=== PATIENT | male | born 1945 | race African-American/Black ===

== ENCOUNTER 2022-04-10 06:29 | Inpatient (IN) | payer OTHER ==
[~2022-04-10] VITALS: Ht 167.6 cm; Wt 57.2 kg
[2022-04-10 07:44] LABS: ALANINE AMINOTRANSFERASE 24 U/L (12-78); ALBUMIN 2.2 g/dL (3.4-5.0); ALKALINE PHOSPHATASE 121 U/L (46-116); ASPARTATE AMINOTRANSFERASE 26 U/L (15-37); BILIRUBIN,DIRECT 0.2 mg/dL (0.0-0.2); BILIRUBIN,TOTAL 0.4 mg/dL (0.2-1.0); CALCIUM, SERUM 8.9 mg/dL (8.5-10.1); CARBON DIOXIDE 27 mmol/L (21-32); CHLORIDE 95 mmol/L (98-107); CREATININE 7.3 mg/dL (0.6-1.3); GLUCOSE 147 mg/dL (74-106); POTASSIUM 3.9 mmol/L (3.5-5.1); SODIUM SERUM 131 mmol/L (136-145); TOTAL PROTEIN, SERUM 8.4 g/dL (6.4-8.2); UREA NITROGEN, BLOOD 56 mg/dL (7-18)
[2022-04-10 07:46] LABS: COLOR,URINE AMBER (YELLOW)
[2022-04-10 07:48] LABS: PROTEIN,URINE 3+ mg/dl (NEGATIVE); UGLUCOSE NEGATIVE (NEGATIVE)
[2022-04-10 07:49] LABS: BILIRUBIN,URINE SMALL (NEGATIVE); LEUKOCYTE ESTERASE ,URINE LARGE (NEGATIVE); NITRITE, URINE NEGATIVE (NEGATIVE)
[2022-04-10 07:50] LABS: BACTERIA,URINE Many /HPF (None Seen); SQUAMOUS EPITHELIAL CELL,UR Few /HPF (None Seen); WBC,URINE TOO NUMEROUS TO COUN /HPF (0-3)
[2022-04-10 08:08] LABS: SERUM AMMONIA 29 umol/L (11-32)
[2022-04-10 08:33] LABS: BASOPHILS % (AUTO) 0.1 % (0.0-2.0); HEMATOCRIT 37 % (39-51); HEMOGLOBIN 11.5 g/dL (13.5-17.5); LYMPHOCYTES # (AUTO) 1.1 K/uL (0.8-4.8); LYMPHOCYTES % (AUTO) 6.5 % (20.0-44.0); MEAN CORPUSCULAR HGB CONC 31 g/dl (31.0-36.0); MEAN CORPUSCULAR VOLUME 88 fL (80-96); MONOCYTES # (AUTO) 1.5 K/uL (0.1-1.30); MONOCYTES % (AUTO) 8.8 % (2.0-12.0); NEUTROPHILS # (AUTO) 14.5 K/uL (1.8-8.9); NEUTROPHILS % (AUTO) 84.6 % (43.0-81.0); PLATELET COUNT (AUTO) 271 K/uL (150-450); WHITE BLOOD COUNT (AUTO) 17.2 K/uL (4.3-11.0)
[2022-04-10] MEDS: CIPROFLOXACIN IV RTU 400 MG in PREMIX 1 EA IV SCH ×2 (08:48→20:39)
[2022-04-10 08:55] LABS: THYROID STIMULATING HORMONE 1.219 uIU/mL (0.358-3.74)
[2022-04-10] MEDS ORDERED: AMIN30LI2 PO (09:01)
[2022-04-10] MEDS ORDERED: ATOR10TA GT (09:01)
[2022-04-10] MEDS ORDERED: VIT1TABL46 PO (09:01)
[2022-04-10] MEDS ORDERED: APIX2.5T PO (09:01)
[2022-04-10] MEDS ORDERED: MELA3TAB41 PO (09:01)
[2022-04-10] MEDS ORDERED: MIDO10TA PO (09:01)
[2022-04-10] MEDS ORDERED: FAMO20TA8 PO (09:01)
[2022-04-10] MEDS ORDERED: CINA30TA2 PO (09:01)
[2022-04-10] MEDS ORDERED: CHOL200013 PO (09:01)
[2022-04-10] MEDS ORDERED: SEVE800T8 PO (09:01)
[2022-04-10] MEDS ORDERED: DOCU-141 PO (09:01)
[2022-04-10] MEDS ORDERED: Z GUARD REMEDY 4 OZ OINT TP PRN (11:30)
[2022-04-10] MEDS ORDERED: ACETAMINOPHEN 325 MG TABLET PO PRN (11:30)
[2022-04-10] MEDS ORDERED: ONDANSETRON HCL/PF 4 MG/2 ML VIAL IVP PRN (11:30)
[2022-04-10] MEDS: SEVELAMER CARBONATE 800 MG TABLET PO SCH ×2 (13:00→18:31)
[2022-04-10] MEDS ORDERED: CEFTRIAXONE 1 G VIAL ONE ×2 (13:16)
[2022-04-10] MEDS: CEFTRIAXONE 1 G in IV D5W 50 ML IV SCH (13:32)
[2022-04-10] MEDS: DOCUSATE SODIUM 100 MG CAPSULE PO SCH (17:00)
[2022-04-10 20:24] VITALS: BP 130/77
[2022-04-10] MEDS ORDERED: HEPARIN SODIUM, PORCINE 5000 UNITS/1 ML VIAL SQ ONE (21:00)
[2022-04-10] MEDS: ATORVASTATIN 10 MG TABLET GT SCH (21:27)
[2022-04-10] MEDS: APIXABAN 2.5 MG TABLET PO SCH (21:29)
[2022-04-11 00:38] VITALS: BP 118/42
[2022-04-11 04:20] VITALS: BP_SYST 105; BP_SYST 109; BP_DIAS 64; BP_DIAS 80
[2022-04-11 06:10] LABS: BASOPHILS % (AUTO) 0.1 % (0.0-2.0); HEMATOCRIT 37 % (39-51); HEMOGLOBIN 11.4 g/dL (13.5-17.5); LYMPHOCYTES # (AUTO) 0.8 K/uL (0.8-4.8); LYMPHOCYTES % (AUTO) 5.2 % (20.0-44.0); MEAN CORPUSCULAR HGB CONC 31 g/dl (31.0-36.0); MEAN CORPUSCULAR VOLUME 88 fL (80-96); MONOCYTES % (AUTO) 6.8 % (2.0-12.0); NEUTROPHILS # (AUTO) 13.4 K/uL (1.8-8.9); NEUTROPHILS % (AUTO) 87.9 % (43.0-81.0); PLATELET COUNT (AUTO) 233 K/uL (150-450); RED BLOOD CELL COUNT(AUTO) 4.18 MIL/uL (4.5-6.0); WHITE BLOOD COUNT (AUTO) 15.2 K/uL (4.3-11.0)
[2022-04-11 06:35] LABS: CARBON DIOXIDE 23 mmol/L (21-32); CHLORIDE 95 mmol/L (98-107); GLUCOSE 167 mg/dL (74-106); MAGNESIUM 2.3 mg/dL (1.8-2.4); PHOSPHORUS 6.7 mg/dL (2.5-4.9); POTASSIUM 3.8 mmol/L (3.5-5.1); SODIUM SERUM 133 mmol/L (136-145); UREA NITROGEN, BLOOD 69 mg/dL (7-18)
[2022-04-11 07:30] LABS: CREATININE 7.7 mg/dL (0.6-1.3)
[2022-04-11] MEDS: CIPROFLOXACIN IV RTU 400 MG in PREMIX 1 EA IV SCH ×2 (08:22→20:41)
[2022-04-11 08:38] VITALS: BP 122/73
[2022-04-11] MEDS: FAMOTIDINE (20 MG) 20 MG TABLET PO SCH (09:49)
[2022-04-11] MEDS: VIT B CMPLX 3/FA/VIT C/BIOTIN 1 TAB TABLET PO SCH (09:49)
[2022-04-11] MEDS: SEVELAMER CARBONATE 800 MG TABLET PO SCH ×3 (09:49→17:15)
[2022-04-11] MEDS: CHOLECALCIFEROL 1,000 UNIT TABLET (VIT D3) PO SCH (09:49)
[2022-04-11] MEDS: DOCUSATE SODIUM 100 MG CAPSULE PO SCH ×2 (09:49→17:15)
[2022-04-11] MEDS: CINACALCET HCL 30 MG TABLET PO SCH (09:49)
[2022-04-11] MEDS: APIXABAN 2.5 MG TABLET PO SCH ×2 (09:50→21:16)
[2022-04-11 12:09] VITALS: BP 128/96
[2022-04-11] MEDS: CEFTRIAXONE 1 G in IV D5W 50 ML IV SCH (12:35)
[2022-04-11] MEDS: IV NS 0.9% 1,000 ML IV PRN (13:17)
[2022-04-11 16:21] VITALS: BP 103/76
[2022-04-11] MEDS: PROSOURCE / PROSTAT (PYXIS) 30 ML UDC GT SCH (17:15)
[2022-04-11 20:00] VITALS: BP 106/84
[2022-04-11] MEDS: ATORVASTATIN 10 MG TABLET GT SCH (21:13)
[2022-04-12] VITALS: BP 113/68
[2022-04-12] MEDS: IV NS 0.9% 1,000 ML IV PRN ×2 (03:30→23:47)
[2022-04-12 04:00] VITALS: BP 102/79
[2022-04-12 06:13] LABS: HEMATOCRIT 36 % (39-51); HEMOGLOBIN 11.5 g/dL (13.5-17.5); LYMPHOCYTES # (AUTO) 0.5 K/uL (0.8-4.8); LYMPHOCYTES % (AUTO) 4.6 % (20.0-44.0); MEAN CORPUSCULAR HGB CONC 32 g/dl (31.0-36.0); MEAN CORPUSCULAR VOLUME 87 fL (80-96); MONOCYTES # (AUTO) 0.9 K/uL (0.1-1.30); MONOCYTES % (AUTO) 8.9 % (2.0-12.0); NEUTROPHILS # (AUTO) 8.8 K/uL (1.8-8.9); NEUTROPHILS % (AUTO) 86.5 % (43.0-81.0); PLATELET COUNT (AUTO) 168 K/uL (150-450); RED BLOOD CELL COUNT(AUTO) 4.14 MIL/uL (4.5-6.0); WHITE BLOOD COUNT (AUTO) 10.1 K/uL (4.3-11.0)
[2022-04-12 06:46] LABS: ALANINE AMINOTRANSFERASE 24 U/L (12-78); ALBUMIN 1.9 g/dL (3.4-5.0); ALKALINE PHOSPHATASE 92 U/L (46-116); ASPARTATE AMINOTRANSFERASE 20 U/L (15-37); BILIRUBIN,TOTAL 0.5 mg/dL (0.2-1.0); CARBON DIOXIDE 23 mmol/L (21-32); CHLORIDE 96 mmol/L (98-107); GLUCOSE 106 mg/dL (74-106); MAGNESIUM 2.1 mg/dL (1.8-2.4); POTASSIUM 3.7 mmol/L (3.5-5.1); SODIUM SERUM 132 mmol/L (136-145); TOTAL PROTEIN, SERUM 7.8 g/dL (6.4-8.2); UREA NITROGEN, BLOOD 37 mg/dL (7-18)
[2022-04-12 08:00] VITALS: BP 99/65
[2022-04-12] MEDS: FAMOTIDINE (20 MG) 20 MG TABLET PO SCH (08:13)
[2022-04-12] MEDS: APIXABAN 2.5 MG TABLET PO SCH ×2 (08:14→20:18)
[2022-04-12] MEDS: CHOLECALCIFEROL 1,000 UNIT TABLET (VIT D3) PO SCH (08:14)
[2022-04-12] MEDS: DOCUSATE SODIUM 100 MG CAPSULE PO SCH ×2 (08:15→17:34)
[2022-04-12] MEDS: VIT B CMPLX 3/FA/VIT C/BIOTIN 1 TAB TABLET PO SCH (08:15)
[2022-04-12] MEDS: SEVELAMER CARBONATE 800 MG TABLET PO SCH ×3 (08:15→17:34)
[2022-04-12] MEDS: CINACALCET HCL 30 MG TABLET PO SCH (08:20)
[2022-04-12] MEDS: CIPROFLOXACIN IV RTU 400 MG in PREMIX 1 EA IV SCH (08:20)
[2022-04-12] MEDS: PROSOURCE / PROSTAT (PYXIS) 30 ML UDC GT SCH ×3 (08:29→17:34)
[2022-04-12] MEDS: CEFTRIAXONE 1 G in IV D5W 50 ML IV SCH (13:28)
[2022-04-12] MEDS ORDERED: ALBUMIN 25% 25 GM in PREMIX 1 EA IV PRN (15:30)
[2022-04-12 15:47] VITALS: BP 101/68
[2022-04-12] MEDS: NEPRO VAN 237 ML CAN PO PRN (17:53)
[2022-04-12 20:00] VITALS: BP 100/57
[2022-04-12] MEDS: ATORVASTATIN 10 MG TABLET GT SCH (21:16)
[2022-04-13] MEDS: SEVELAMER CARBONATE 800 MG TABLET PO SCH ×3 (07:41→17:10)
[2022-04-13 08:00] VITALS: BP 98/55
[2022-04-13] MEDS: DOCUSATE SODIUM 100 MG CAPSULE PO SCH ×2 (08:19→17:10)
[2022-04-13] MEDS: VIT B CMPLX 3/FA/VIT C/BIOTIN 1 TAB TABLET PO SCH (08:19)
[2022-04-13] MEDS: CHOLECALCIFEROL 1,000 UNIT TABLET (VIT D3) PO SCH (08:19)
[2022-04-13] MEDS: FAMOTIDINE (20 MG) 20 MG TABLET PO SCH (08:19)
[2022-04-13] MEDS: CINACALCET HCL 30 MG TABLET PO SCH (08:19)
[2022-04-13] MEDS: PROSOURCE / PROSTAT (PYXIS) 30 ML UDC GT SCH ×2 (08:21→17:10)
[2022-04-13] MEDS: APIXABAN 2.5 MG TABLET PO SCH ×2 (08:21→21:25)
[2022-04-13] MEDS: NEPRO VAN 237 ML CAN PO PRN (08:41)
[2022-04-13] MEDS: IV NS 0.9% 1,000 ML IV PRN (13:00)
[2022-04-13] MEDS: CEFTRIAXONE 1 G in IV D5W 50 ML IV SCH (13:01)
[2022-04-13 16:00] VITALS: BP 101/46
[2022-04-13 20:00] VITALS: BP 109/49
[2022-04-13] MEDS: ATORVASTATIN 10 MG TABLET GT SCH (21:25)
[2022-04-14] MEDS: IV NS 0.9% 1,000 ML IV PRN ×2 (00:29→05:12)
[2022-04-14 04:00] VITALS: BP 128/71
[2022-04-14] MEDS: CHOLECALCIFEROL 1,000 UNIT TABLET (VIT D3) PO SCH (08:13)
[2022-04-14] MEDS: VIT B CMPLX 3/FA/VIT C/BIOTIN 1 TAB TABLET PO SCH (08:13)
[2022-04-14] MEDS: SEVELAMER CARBONATE 800 MG TABLET PO SCH ×2 (08:13→12:12)
[2022-04-14] MEDS: DOCUSATE SODIUM 100 MG CAPSULE PO SCH ×2 (08:13→16:36)
[2022-04-14] MEDS: FAMOTIDINE (20 MG) 20 MG TABLET PO SCH (08:13)
[2022-04-14] MEDS: APIXABAN 2.5 MG TABLET PO SCH (08:14)
[2022-04-14] MEDS: CINACALCET HCL 30 MG TABLET PO SCH (08:15)
[2022-04-14] MEDS: PROSOURCE / PROSTAT (PYXIS) 30 ML UDC GT SCH ×2 (08:15→16:36)
[2022-04-14 09:37] VITALS: BP 128/71
[2022-04-14] MEDS: CEFTRIAXONE 1 G in IV D5W 50 ML IV SCH (13:30)
[2022-04-14 15:40] LABS: BASOPHILS % (AUTO) 0.1 % (0.0-2.0); EOSINOPHILS % (AUTO) 0.5 % (0.0-6.0); HEMATOCRIT 37 % (39-51); HEMOGLOBIN 11.5 g/dL (13.5-17.5); LYMPHOCYTES % (AUTO) 12.9 % (20.0-44.0); MEAN CORPUSCULAR HGB CONC 31 g/dl (31.0-36.0); MEAN CORPUSCULAR VOLUME 89 fL (80-96); MONOCYTES # (AUTO) 0.7 K/uL (0.1-1.30); MONOCYTES % (AUTO) 9.3 % (2.0-12.0); NEUTROPHILS # (AUTO) 5.8 K/uL (1.8-8.9); NEUTROPHILS % (AUTO) 77.2 % (43.0-81.0); PLATELET COUNT (AUTO) 163 K/uL (150-450); RED BLOOD CELL COUNT(AUTO) 4.19 MIL/uL (4.5-6.0); WHITE BLOOD COUNT (AUTO) 7.5 K/uL (4.3-11.0)
[2022-04-14 16:00] VITALS: BP 128/71
[2022-04-14 17:30] LABS: CALCIUM, SERUM 8.3 mg/dL (8.5-10.1); CARBON DIOXIDE 27 mmol/L (21-32); CHLORIDE 103 mmol/L (98-107); CREATININE 2.2 mg/dL (0.6-1.3); GLUCOSE 124 mg/dL (74-106); MAGNESIUM 1.9 mg/dL (1.8-2.4); PHOSPHORUS 1.7 mg/dL (2.5-4.9); POTASSIUM 3.7 mmol/L (3.5-5.1); SODIUM SERUM 138 mmol/L (136-145); UREA NITROGEN, BLOOD 14 mg/dL (7-18)
== END 2022-04-14 18:00 | DRG 689 ==
LOC: ER 06:32 → TRANSITION 11:55 → TELE 15:48 → MED 04-13 00:04
PROC: 5A1D70Z Performance of Urinary Filtration, Intermittent, Less than 6 Hours Per Day (ICD-10-PCS; principal; 2022-04-11)
DX: N39.0 Urinary tract infection, site not specified (principal); G93.41 Metabolic encephalopathy; N18.6 End stage renal disease; E87.1 Hypo-osmolality and hyponatremia; E44.0 Moderate protein-calorie malnutrition; I12.0 Hypertensive chronic kidney disease with stage 5 chronic kidney disease or end stage renal disease; G81.90 Hemiplegia, unspecified affecting unspecified side; Z20.822 Contact with and (suspected) exposure to COVID-19; E21.3 Hyperparathyroidism, unspecified; Z88.0 Allergy status to penicillin; Z79.01 Long term (current) use of anticoagulants; Z79.899 Other long term (current) drug therapy; Z86.73 Personal history of transient ischemic attack (TIA), and cerebral infarction without residual deficits; Z99.2 Dependence on renal dialysis; D63.8 Anemia in other chronic diseases classified elsewhere; M89.8X9 Other specified disorders of bone, unspecified site; E78.5 Hyperlipidemia, unspecified; G93.89 Other specified disorders of brain; L60.3 Nail dystrophy; I73.9 Peripheral vascular disease, unspecified; M62.50 Muscle wasting and atrophy, not elsewhere classified, unspecified site; L81.9 Disorder of pigmentation, unspecified
CPT/HCPCS: 36415; 70450-TC; 71045-TC; 80048-TC; 80053-TC; 80076-TC; 81001; 82140-TC; 83735-TC; 84100-TC; 84439-TC; 84443-TC; 85025-TC; 86706; 87081-TC; 87086-TC; 87186-TC; 87340; 90935-TC; 92526; 92611-TC; A4216; A4349; C9803; G0378; J0696; J0744; J7030; J7060; P9047

== ENCOUNTER 2022-07-08 09:42 | Inpatient (IN) | payer MEDICARE, OTHER ==
[~2022-07-08] VITALS: Ht 167.6 cm; Wt 56.7 kg
[~2022-07-08 09:42] MED LIST: AMIN30LI2 PO; APIX2.5T PO; ATOR10TA PO; CHOL200013 PO; CINA30TA2 PO; DOCU-141 PO; FAMO20TA8 PO; MELA3TAB41 PO; MIDO10TA PO; SEVE800T8 PO; VIT1TABL46 PO
--- NOTE | 2022-07-08 09:57 | NUR ---
PT COMING FROM [facility] [phone]
--- NOTE | 2022-07-08 10:05 | NUR ---
CALLED [facility], NO ANSWER. WILL ATTEMPT AGAIN.
--- NOTE | 2022-07-08 10:15 | NUR ---
SPOKE TO MANOJ JETT FROM [facility].
[2022-07-08] MEDS ORDERED: IV NS 0.9% 500 ML BAG IV ONE (10:30)
[2022-07-08 10:42] LABS: BASOPHILS % (AUTO) 0.3 % (0.0-2.0); EOSINOPHILS % (AUTO) 1.5 % (0.0-6.0); HEMATOCRIT 33 % (39-51); HEMOGLOBIN 10.7 g/dL (13.5-17.5); LYMPHOCYTES # (AUTO) 0.8 K/uL (0.8-4.8); LYMPHOCYTES % (AUTO) 9.1 % (20.0-44.0); MEAN CORPUSCULAR HGB CONC 32 g/dl (31.0-36.0); MEAN CORPUSCULAR VOLUME 91 fL (80-96); MONOCYTES # (AUTO) 0.1 K/uL (0.1-1.30); MONOCYTES % (AUTO) 1.6 % (2.0-12.0); NEUTROPHILS # (AUTO) 7.6 K/uL (1.8-8.9); NEUTROPHILS % (AUTO) 87.5 % (43.0-81.0); PLATELET COUNT (AUTO) 272 K/uL (150-450); RED BLOOD CELL COUNT(AUTO) 3.66 MIL/uL (4.5-6.0); WHITE BLOOD COUNT (AUTO) 8.6 K/uL (4.3-11.0)
--- NOTE | 2022-07-08 11:00 | NUR ---
MOVE SHEET SUBMITTED
[2022-07-08] MEDS ORDERED: ACET-868 PO (11:09)
[2022-07-08] MEDS ORDERED: NUT.237L67 PO (11:09)
[2022-07-08] MEDS ORDERED: POVI3780 TP (11:09)
[2022-07-08 11:12] LABS: ALANINE AMINOTRANSFERASE 42 U/L (12-78); ALBUMIN 2.2 g/dL (3.4-5.0); ALKALINE PHOSPHATASE 94 U/L (46-116); ASPARTATE AMINOTRANSFERASE 33 U/L (15-37); BILIRUBIN,DIRECT 0.1 mg/dL (0.0-0.2); BILIRUBIN,TOTAL 0.4 mg/dL (0.2-1.0); CALCIUM, SERUM 8.7 mg/dL (8.5-10.1); CARBON DIOXIDE 29 mmol/L (21-32); CHLORIDE 100 mmol/L (98-107); CREATININE 3.3 mg/dL (0.6-1.3); GLUCOSE 95 mg/dL (74-106); POTASSIUM 3.3 mmol/L (3.5-5.1); SODIUM SERUM 133 mmol/L (136-145); TOTAL PROTEIN, SERUM 7.7 g/dL (6.4-8.2); UREA NITROGEN, BLOOD 36 mg/dL (7-18)
[2022-07-08 11:21] LABS: THYROID STIMULATING HORMONE 1.686 uIU/mL (0.358-3.74)
--- NOTE | 2022-07-08 11:57 | NUR ---
RAPID COVID SWAB DONE AND SENT TO LAB
[2022-07-08] MEDS ORDERED: AZTREONAM 1 G in IV NS 0.9% 100 ML IV ONE (12:00)
[2022-07-08] MEDS ORDERED: VANCOMYCIN 1 GM in IV D5W 250 ML IV ONE (12:00)
--- NOTE | 2022-07-08 12:11 | NUR ---
[facility] PAGED
[2022-07-08] MEDS ORDERED: Medication Not On Formulary EA (Midodrine Hcl 10 MG) PO SCH (12:30)
[2022-07-08] MEDS ORDERED: ACETAMINOPHEN 325 MG TABLET PO PRN (12:30)
[2022-07-08] MEDS ORDERED: ALBUTEROL FS 2.5 MG/0.5 ML VIAL.NEB NEB PRN (12:30)
[2022-07-08] MEDS ORDERED: ONDANSETRON HCL/PF 4 MG/2 ML VIAL IVP PRN (12:30)
[2022-07-08] MEDS ORDERED: MORPHINE SULFATE INJ 2 MG/ML DISP.SYRIN IV PRN (12:30)
--- NOTE | 2022-07-08 12:36 | NUR ---
covid swab taken
[2022-07-08] MEDS ORDERED: Medication Not On Formulary EA (Amino Acids/Protein Hydrolys (Pro-Stat Liquid) 30 ML) PO SCH (13:00)
[2022-07-08] MEDS ORDERED: MIDODRINE HCL (5MG) 5 MG TABLET PO PRN (13:00)
[2022-07-08] MEDS ORDERED: CEFEPIME 1 GM in IV D5W 50 ML IV SCH (14:00)
--- NOTE | 2022-07-08 16:41 | NUR ---
BED 323-1
--- NOTE | 2022-07-08 16:46 | NUR ---
REPORT GIVEN TO RADHA JETT OF TELE UNIT
[2022-07-08] MEDS: NEPRO VAN 237 ML CAN PO SCH (17:00)
[2022-07-08] MEDS: PROSOURCE / PROSTAT (PYXIS) 30 ML UDC PO SCH (17:00)
--- NOTE | 2022-07-08 17:50 | NUR ---
WRIST HEMMER NOTE PT TRANSFERRED FROM ED FOR VIA NINO, WITH NO SIGN OF DISTRESS. ORIENTED PATIENT TO ROOM SET UP AND EDUCATED PATIENT ON HOW TO USE OF CALL LIGHT. 76 Y/O MALE CAME FROM [facility]. IS ON TTS DIALYSIS. DURING DIALYSIS PATIENT EXPERIENCED LOW BP. HE BEING ADMITTED FOR LOW BP. HE IS ALLERGIC TO PENICILLIN. COVID NEGATIVE. PATIENT HAS HAD FLU AND COVID VACCINES. A/OX2. HD PORT ON LEFT CHEST. SKIN ASSESSMENT DONE, DRYNESS NOTE ON RLE AND LUE AND PICTURES TAKEN AND PLACED IN CHART. PATIENT BREATHING ON RA WITH NO S/S OF RESPIRATORY DISTRESS. PATIENT DOES NOT COMPLAINT OF PAIN AT THE MOMENT. EXTERNAL DECAY CONTROL OPERATOR APPLIED TO HIM READING SB @56 BPM. IV ACCESS RIGHT UA ML, PATENT AND INTACT. CHEST CLEAR ON AUSCULTATION. VS TAKEN, STABLE AND RECORDED. ALL BELONGINGS CHECKED. WILL CONTINUE TO MONITOR.
[2022-07-08] MEDS: DOCUSATE SODIUM 100 MG CAPSULE PO SCH (17:57)
[2022-07-08] MEDS ORDERED: IPRATROPIUM/ALBUTEROL INHALER IH SCH (18:00)
[2022-07-08] MEDS ORDERED: Medication Not On Formulary EA (Melatonin 3 MG) PO SCH (18:00)
[2022-07-08] MEDS: APIXABAN 2.5 MG TABLET PO SCH (18:04)
--- NOTE | 2022-07-08 19:10 | NUR ---
RN CLOSING NOTE PATIENT REMAIN STABLE. WILL ENDORSE TO NIPPLE THREADER NURSE FOR ZOE.
[2022-07-08] MEDS: IPRATROPIUM NEB FS 0.5 MG/2.5 ML AMPUL.NEB NEB SCH (19:30)
[2022-07-08] MEDS: ALBUTEROL FS 2.5 MG/0.5 ML VIAL.NEB NEB SCH (19:30)
[2022-07-08 20:00] VITALS: BP 101/63
[2022-07-08] MEDS ORDERED: CEFEPIME 2 GM in IV D5W 100 ML IV SCH (20:00)
[2022-07-08] MEDS: CEFEPIME 1 GM in IV D5W 50 ML IV SCH (20:23)
--- NOTE | 2022-07-08 20:50 | NUR ---
noc rn opening received patient in bed. a/ox1-2 to name and . no s/s of apparent distress on room air. denies pain at this time. reading sb in the tele monitor 57 bpm. rt. UA midline in place. Manually checked patients BP and I got 100/60. Call light within reach. safety in place. will cont. with plan of care for patient.
[2022-07-08] MEDS: ATORVASTATIN 10 MG TABLET PO SCH (23:16)
[2022-07-09] VITALS: BP 108/48
[2022-07-09 04:00] VITALS: BP 123/58
[2022-07-09 05:57] LABS: BASOPHILS % (AUTO) 0.7 % (0.0-2.0); EOSINOPHILS % (AUTO) 2.3 % (0.0-6.0); HEMATOCRIT 33 % (39-51); HEMOGLOBIN 10.7 g/dL (13.5-17.5); LYMPHOCYTES # (AUTO) 1.5 K/uL (0.8-4.8); LYMPHOCYTES % (AUTO) 25.8 % (20.0-44.0); MEAN CORPUSCULAR HGB CONC 33 g/dl (31.0-36.0); MEAN CORPUSCULAR VOLUME 90 fL (80-96); MONOCYTES # (AUTO) 0.8 K/uL (0.1-1.30); MONOCYTES % (AUTO) 14.1 % (2.0-12.0); NEUTROPHILS # (AUTO) 3.3 K/uL (1.8-8.9); NEUTROPHILS % (AUTO) 57.1 % (43.0-81.0); PLATELET COUNT (AUTO) 297 K/uL (150-450); RED BLOOD CELL COUNT(AUTO) 3.65 MIL/uL (4.5-6.0); WHITE BLOOD COUNT (AUTO) 5.8 K/uL (4.3-11.0)
--- NOTE | 2022-07-09 06:30 | NUR ---
noc rn note just got off the phone with patient's daughter Estelle Singh, verified code status. per Daughter she wants her father to be Full code and she is not sure about patient having legal documents. secured consent for hemodialysis in patient via telephone, witnessed by another RN. questions and concerns answered at this time.
--- NOTE | 2022-07-09 07:20 | NUR ---
SUPERVISOR ELECTROLYTIC TINNING OPENING NOTES RECEIVED PATIENT ASLEEP BUT WOKEN UP EASILY. PATIENT IS A/O X 3. BREATHING EVEN AND NON-LABORED ON ROOM AIR. NOT IN APPARENT DISTRESS. NO PAIN OR DISCOMFORT NOTED. ON TELE MONITOR READING SINUS ANDREA AT 59 BPM. HAS RIGHT UPPER ARM MIDLINE AND SALINE LOCKED. NO S/S OF INFILTRATION NOTED. HAS LEFT CHEST WALL PERMA CATH, DRESSING C/D/I. SAFETY PRECAUTIONS IN PLACE: BED LOCKED AND IN LOWEST POSITION, SIDE RAILS UP X2, CALL LIGHT WITHIN REACH. WILL CONTINUE POC.
[2022-07-09] MEDS: IPRATROPIUM NEB FS 0.5 MG/2.5 ML AMPUL.NEB NEB SCH ×3 (07:35→20:34)
[2022-07-09] MEDS: ALBUTEROL FS 2.5 MG/0.5 ML VIAL.NEB NEB SCH ×3 (07:35→20:34)
--- NOTE | 2022-07-09 07:37 | NUR ---
noc rn closing needs attended. report given to JOHNIE Hodge for continuity of patient care.
[2022-07-09 08:00] VITALS: BP 132/73
[2022-07-09] MEDS: NEPRO VAN 237 ML CAN PO SCH ×2 (08:00→17:00)
--- NOTE | 2022-07-09 08:22 | NUR ---
WOUND CARE CONSULT: PT PRESENTS WITH INCONTINENCE AND LEFT LEG CONTRACTURE, AREAS OF SKIN DISCOLORATION, DRY SCALY SKIN TO LOWER LEGS AND SACRAL SCAR, ALL PRESENT ON ADMISSION. RECOMMENDATIONS MADE FOR SKIN PROTECTION. DISCUSSED WITH NURSING STAFF. FIRST STEP LOW AIRLOSS MATTRESS ORDERED. MD IN AGREEMENT WITH PLAN OF CARE. Addendum: 07/09/22 at 0824 by ALANA BEARDEN WNDNU Amended: Links added.
[2022-07-09] MEDS ORDERED: Z GUARD REMEDY 4 OZ OINT TP PRN (08:30)
[2022-07-09] MEDS: VIT B CMPLX 3/FA/VIT C/BIOTIN 1 TAB TABLET PO SCH (10:07)
[2022-07-09] MEDS: DOCUSATE SODIUM 100 MG CAPSULE PO SCH ×2 (10:08→17:48)
[2022-07-09] MEDS: FAMOTIDINE (20 MG) 20 MG TABLET PO SCH (10:08)
[2022-07-09] MEDS: APIXABAN 2.5 MG TABLET PO SCH ×2 (10:11→17:51)
[2022-07-09] MEDS: PROSOURCE / PROSTAT (PYXIS) 30 ML UDC PO SCH ×3 (10:29→17:48)
[2022-07-09] MEDS: Z GUARD REMEDY 4 OZ OINT TP SCH (11:26)
[2022-07-09] MEDS: MINERAL OIL/PETROLATUM,WHITE 120 GM JAR TP SCH (11:27)
[2022-07-09 11:52] LABS: ALANINE AMINOTRANSFERASE 31 U/L (12-78); ALBUMIN 2.3 g/dL (3.4-5.0); ALKALINE PHOSPHATASE 86 U/L (46-116); ASPARTATE AMINOTRANSFERASE 25 U/L (15-37); BILIRUBIN,TOTAL 0.2 mg/dL (0.2-1.0); CALCIUM, SERUM 8.8 mg/dL (8.5-10.1); CARBON DIOXIDE 27 mmol/L (21-32); CHLORIDE 102 mmol/L (98-107); CREATININE 4.6 mg/dL (0.6-1.3); GLUCOSE 122 mg/dL (74-106); PHOSPHORUS 3.8 mg/dL (2.5-4.9); POTASSIUM 3.6 mmol/L (3.5-5.1); SODIUM SERUM 135 mmol/L (136-145); UREA NITROGEN, BLOOD 53 mg/dL (7-18)
[2022-07-09 16:00] VITALS: BP 136/83
--- NOTE | 2022-07-09 19:00 | NUR ---
POWER ELECTRONICS ENGINEER CLOSING NOTES PATIENT ASLEEP BUT WOKEN UP EASILY. PATIENT IS A/O X 3. BREATHING EVEN AND NON-LABORED ON ROOM AIR. NOT IN APPARENT DISTRESS. NO PAIN OR DISCOMFORT NOTED. ON TELE MONITOR READING SINUS ANDREA AT 59 BPM. HAS RIGHT UPPER ARM MIDLINE AND SALINE LOCKED. NO S/S OF INFILTRATION NOTED. HAS LEFT CHEST WALL PERMA CATH, DRESSING C/D/I. SAFETY PRECAUTIONS IN PLACE: BED LOCKED AND IN LOWEST POSITION, SIDE RAILS UP X2, CALL LIGHT WITHIN REACH. ENDORSED TO NEXT SHIFT FOR CONTINUITY OF CARE.
--- NOTE | 2022-07-09 19:30 | NUR ---
BAND SAWMILL OPERATOR OPENING NOTES RECEIVED PATIENT LAYING IN BED, WHOLE BODY COVERED WITH BLANKET. RESPONSIVE TO VERBAL AND TACTILE STIMULI. A/O X 2-3. BREATHING EVEN AND NON-LABORED ON ROOM AIR. NOT IN APPARENT DISTRESS. NO PAIN OR DISCOMFORT NOTED. ON TELE MONITOR READING SINUS RHYTHM WITH PVC AT 64 BPM. HAS RIGHT UPPER ARM MIDLINE AND SALINE LOCKED. NO S/S OF INFILTRATION NOTED. HAS LEFT CHEST WALL PERMA CATH, DRESSING C/D/I. HAS CONDOM CATHETER CONNECTED TO BAG FOR COLLECTION OF URINE SAMPLE. SAFETY PRECAUTIONS IN PLACE: BED LOCKED AND IN LOWEST POSITION, SIDE RAILS UP X2, CALL LIGHT WITHIN REACH. WILL CONTINUE POC.
[2022-07-09] MEDS: CEFEPIME 1 GM in IV D5W 50 ML IV SCH (19:50)
[2022-07-09 20:00] VITALS: BP 134/78
[2022-07-09] MEDS: ATORVASTATIN 10 MG TABLET PO SCH (21:08)
[2022-07-10] VITALS (8 sets, daily range): BP systolic 100–126; BP diastolic 62–78
[2022-07-10] MEDS: ALBUTEROL FS 2.5 MG/0.5 ML VIAL.NEB NEB SCH ×4 (01:30→20:39)
[2022-07-10] MEDS: IPRATROPIUM NEB FS 0.5 MG/2.5 ML AMPUL.NEB NEB SCH ×4 (01:30→20:39)
--- NOTE | 2022-07-10 06:46 | NUR ---
SOUND TECHNICIAN CLOSING NOTES PATIENT IN BED ASLEEP, EASY TO AROUSE. ORIENTED TO PERSON ONLY. ABLE TO VERBALIZE NEEDS. STABLE THROUGHOUT THE NIGHT. SATURATING AROUND 95-99% ON ROOM AIR. LEFT LOWER LEG CONTRACTED, OFFLOADED AND REPOSITIONED. ON TELE MONITOR READING SINUS RHYTHM AT 78 BPM. RIGHT UPPER ARM MIDLINE #18G INTACT, PATENT AND FLUSHING. LEFT CHEST WALL PERMA CATH DRESSING C/D/I. UNABLE TO COLLECT URINE SAMPLE, REPLACED CONDOM CATHETER. ALL DUE MEDS GIVEN AND NEEDS ATTENDED. SAFETY PRECAUTIONS MAINTAINED. WILL ENDORSE TO NEXT SHIFT FOR ZOE.
--- NOTE | 2022-07-10 07:17 | NUR ---
AUTO BRAKE MECHANIC OPENING NOTES RECEIVED PATIENT ASLEEP IN BED, EASILY AWAKES TO STIMULI. HOB ELEVATED. PT IS A/O X1-2, VERBALLY RESPONSIVE, NO S/S OF PAIN OR ANY DISCOMFORTS OBSERVED AT THIS TIME. ON ROOM AIR, TOLERATING WELL, BREATHING EVEN AND UNLABORED, NO ACUTE DISTRESS NOTED. ON TELE-MONITOR WITH CURRENT READING OF NSR, HR 73, NO S/S OF CARDIAC DISTRESS NOTED AT THIS TIME. PT WITH LEFT CHEST WALL PERMA CATH INTACT WITH DRESSING C/D/I. CONDOM CATHETER IN PLACE FOR URINE COLLECTION. SAFETY PRECAUTIONS MAINTAINED. BED IN LOWEST LOCKED POSITION WITH SR UP X2, CALL LIGHT W/IN REACH. WILL CONTINUE TO MONITOR PT ACCORDINGLY.
[2022-07-10] MEDS: NEPRO VAN 237 ML CAN PO SCH ×2 (08:08→17:13)
[2022-07-10] MEDS: VIT B CMPLX 3/FA/VIT C/BIOTIN 1 TAB TABLET PO SCH (08:43)
[2022-07-10] MEDS: DOCUSATE SODIUM 100 MG CAPSULE PO SCH ×2 (08:43→17:13)
[2022-07-10] MEDS: PROSOURCE / PROSTAT (PYXIS) 30 ML UDC PO SCH ×3 (08:43→17:13)
[2022-07-10] MEDS: FAMOTIDINE (20 MG) 20 MG TABLET PO SCH (08:43)
[2022-07-10] MEDS: Z GUARD REMEDY 4 OZ OINT TP SCH (08:44)
[2022-07-10] MEDS: APIXABAN 2.5 MG TABLET PO SCH ×2 (08:46→17:16)
[2022-07-10] MEDS: MINERAL OIL/PETROLATUM,WHITE 120 GM JAR TP SCH (08:48)
[2022-07-10 10:59] LABS: ALANINE AMINOTRANSFERASE 27 U/L (12-78); ALBUMIN 2.2 g/dL (3.4-5.0); ALKALINE PHOSPHATASE 98 U/L (46-116); ASPARTATE AMINOTRANSFERASE 17 U/L (15-37); BILIRUBIN,TOTAL 0.2 mg/dL (0.2-1.0); CALCIUM, SERUM 8.9 mg/dL (8.5-10.1); CARBON DIOXIDE 26 mmol/L (21-32); CHLORIDE 104 mmol/L (98-107); CREATININE 5.6 mg/dL (0.6-1.3); GLUCOSE 126 mg/dL (74-106); POTASSIUM 3.5 mmol/L (3.5-5.1); SODIUM SERUM 137 mmol/L (136-145); TOTAL PROTEIN, SERUM 7.5 g/dL (6.4-8.2); UREA NITROGEN, BLOOD 66 mg/dL (7-18)
--- NOTE | 2022-07-10 11:57 | NUR ---
RN NOTES RECEIVED CALL FROM LAB THAT PT'S FINAL BLOOD CULTURE RESULTS WAS GRAM POSITIVE COCCI ON GRAM STAIN. DR MORRIS MADE AWARE AND ACKNOWLEDGED. NO NEW ORDER MADE AT THIS TIME.
--- NOTE | 2022-07-10 16:53 | NUR ---
RN NOTES PATIENT JUST COMPLETED AND TOLERATED HEMODIALYSIS VIA RCW PERMACATHETER WITH 1,200ML REMOVED PER DIALYSIS NURSE SHEY.
[2022-07-10] MEDS ORDERED: VANCOMYCIN HCL 0.75 GM in IV D5W 250 ML IV ONE (18:00)
--- NOTE | 2022-07-10 18:41 | NUR ---
FLOORWORKER DISTRIBUTOR CLOSING NOTES PATIENT IN BED AWAKE AND RESTING AT MODERATE HIGH BACKREST POSITION AT THIS TIME. A/O X1-2. ABLE TO COMMUNICATE VERBALLY. FORGETFUL. ON ROOM AIR, TOLERATING WELL, BREATHING EVEN AND UNLABORED, NO ACUTE DISTRESS NOTED. ON TELE-MONITOR WITH CURRENT READING OF NSR, WITH PVC'S, HR 76, NO C/O CARDIAC DISTRESS VOICED. PT WITH LEFT CHEST WALL PERMA CATH INTACT WITH DRESSING C/D/I. CONDOM CATHETER IN PLACE, PT VOIDED ABOUT 5-10ML OF URINE ONLY DURING SHIFT, NEEDS MORE SPECIMEN FOR U/A. PT TURNED AND REPOSITIONED Q 2HRS AND PRN. ALL NEEDS AND CARE ANTICIPATED AND MET. SAFETY PRECAUTIONS MAINTAINED. BED IN LOWEST LOCKED POSITION WITH SR UP X2, TRAY TABLE AND CALL LIGHT W/IN REACH OF PT. WILL ENDORSED ZOE TO DECISION UNIT RN NURSE.
--- NOTE | 2022-07-10 19:26 | NUR ---
NOTCH GRINDER OPENING NOTES RECEIVED PATIENT LAYING IN BED, WHOLE BODY COVERED WITH BLANKET. EASY TO AROUSE. A/O X1 TO NAME ONLY. BREATHING EVEN AND NON-LABORED ON ROOM AIR. NOT IN APPARENT DISTRESS. DENIES PAIN AT THIS TIME. ON TELE MONITOR READING SINUS RHYTHM WITH PVC AT 78 BPM. HAS RIGHT UPPER ARM MIDLINE AND SALINE LOCKED. NO S/S OF INFILTRATION NOTED. HAS LEFT CHEST WALL PERMA CATH, DRESSING C/D/I. HAS CONDOM CATHETER CONNECTED TO BAG. SAFETY PRECAUTIONS IN PLACE: BED LOCKED AND IN LOWEST POSITION, SIDE RAILS UP X3, CALL LIGHT WITHIN REACH. WILL CONTINUE POC.
[2022-07-10] MEDS: CEFEPIME 1 GM in IV D5W 50 ML IV SCH (20:10)
--- NOTE | 2022-07-10 21:48 | NUR ---
IN FILE OPERATOR NOTES PATIENT'S SISTER, ALYSON, CALLED ASKING FOR THE PATIENT'S STATUS. SHE WILL CALL AGAIN TOMORROW TO CHECK WHEN THE PATIENT WILL BE DISCHARGED.
[2022-07-10] MEDS: ATORVASTATIN 10 MG TABLET PO SCH (22:14)
[2022-07-11] VITALS (7 sets, daily range): BP systolic 110–117; BP diastolic 61–78
[2022-07-11] MEDS: IPRATROPIUM NEB FS 0.5 MG/2.5 ML AMPUL.NEB NEB SCH ×3 (01:13→13:28)
[2022-07-11] MEDS: ALBUTEROL FS 2.5 MG/0.5 ML VIAL.NEB NEB SCH ×3 (01:14→13:28)
[2022-07-11 05:58] LABS: BILIRUBIN,URINE NEGATIVE (NEGATIVE); COLOR,URINE YELLOW (YELLOW); LEUKOCYTE ESTERASE ,URINE 3+ (NEGATIVE); NITRITE, URINE NEGATIVE (NEGATIVE); PH,URINE 8.5 (5.0-8.0); PROTEIN,URINE 2+ mg/dl (NEGATIVE); UGLUCOSE NEGATIVE (NEGATIVE); UROBILINOGEN,URINE 0.2 EU/dL (0.2)
[2022-07-11 06:02] LABS: CREATININE, URINE 16.7 MG/DL (30.0-125.0)
[2022-07-11 06:12] LABS: BACTERIA,URINE Few /HPF (None Seen); SQUAMOUS EPITHELIAL CELL,UR Many /HPF (None Seen)
--- NOTE | 2022-07-11 06:52 | NUR ---
CARE TECHNICIAN CLOSING NOTES PATIENT ASLEEP IN BED, EASY TO AROUSE. FREQUENT REORIENTATION NEEDED. ABLE TO VERBALIZE NEEDS. V/S WNL, TOLERATING ROOM AIR WELL. AFEBRILE. ON TELE MONITOR READING SINUS RHYTHM WITH PVC AT 97 BPM. RIGHT UPPER ARM MIDLINE #18G INTACT, PATENT AND FLUSHING. LEFT CHEST WALL PERMA CATH DRESSING C/D/I. REPOSITIONED AND OFFLOADED EXTREMITIES/BUTTOCKS. ALL DUE MEDS GIVEN AND NEEDS ATTENDED. SAFETY PRECAUTIONS MAINTAINED. WILL ENDORSE TO NEXT SHIFT FOR ZOE.
--- NOTE | 2022-07-11 07:32 | NUR ---
PRODUCTION OPERATIONS INSPECTOR OPENING NOTES RECEIVED PATIENT IN BED AWAKE IN NO ACUTE SIGNS OF DISTRESS. A/O X2, VERBALLY RESPONSIVE, DENIES PAIN OR ANY DISCOMFORTS VOICED AT THIS TIME. ON ROOM AIR, TOLERATING WELL, BREATHING EVEN AND UNLABORED, NO ACUTE DISTRESS NOTED. ON TELE-MONITOR WITH CURRENT READING OF NSR, HR 87, NO S/S OF CARDIAC DISTRESS NOTED AT THIS TIME. PT WITH LEFT CHEST WALL PERMA CATH INTACT WITH DRESSING C/D/I. MIDLINE ON ARIADNE G#18 INTACT, PATENT AND FLUSHES WELL. SAFETY PRECAUTIONS IN PLACE: BED IN LOWEST LOCKED POSITION WITH SR UP X2, BED ALARM ON, TRAY TABLE AND CALL LIGHT W/IN REACH. WILL CONTINUE TO MONITOR PT
[2022-07-11] MEDS: NEPRO VAN 237 ML CAN PO SCH (08:33)
--- NOTE | 2022-07-11 08:39 | NUR ---
WOUND CARE CONSULT/FOLLOW UP: PT SEEN FOR LEFT HEEL AREA OF PEELING SKIN WITH SCARRING. DISCUSSED SKIN PROTECTION WITH NURSING STAFF. PT CONTINUES TO HAVE AREAS OF SKIN DISCOLORATION. MD IN AGREEMENT WITH PLAN OF CARE.
[2022-07-11] MEDS: FAMOTIDINE (20 MG) 20 MG TABLET PO SCH (08:55)
[2022-07-11] MEDS: DOCUSATE SODIUM 100 MG CAPSULE PO SCH (08:56)
[2022-07-11] MEDS: APIXABAN 2.5 MG TABLET PO SCH (08:56)
[2022-07-11] MEDS: PROSOURCE / PROSTAT (PYXIS) 30 ML UDC PO SCH ×2 (08:57→12:30)
[2022-07-11] MEDS: VIT B CMPLX 3/FA/VIT C/BIOTIN 1 TAB TABLET PO SCH (08:57)
[2022-07-11] MEDS: MINERAL OIL/PETROLATUM,WHITE 120 GM JAR TP SCH (08:58)
[2022-07-11] MEDS: Z GUARD REMEDY 4 OZ OINT TP SCH (08:59)
[2022-07-11] MEDS ORDERED: CEFE1FRO IV (09:12)
[2022-07-11 09:29] LABS: CALCIUM, SERUM 9.2 mg/dL (8.5-10.1); CARBON DIOXIDE 22 mmol/L (21-32); CHLORIDE 106 mmol/L (98-107); CREATININE 4.4 mg/dL (0.6-1.3); GLUCOSE 85 mg/dL (74-106); POTASSIUM 4.1 mmol/L (3.5-5.1); SODIUM SERUM 137 mmol/L (136-145); UREA NITROGEN, BLOOD 48 mg/dL (7-18)
[2022-07-11 09:36] LABS: ALANINE AMINOTRANSFERASE 29 U/L (12-78); ALBUMIN 2.3 g/dL (3.4-5.0); ALKALINE PHOSPHATASE 92 U/L (46-116); ASPARTATE AMINOTRANSFERASE 20 U/L (15-37); BILIRUBIN,TOTAL 0.3 mg/dL (0.2-1.0); TOTAL PROTEIN, SERUM 7.9 g/dL (6.4-8.2)
[2022-07-11] MEDS ORDERED: VANCOMYCIN POST DIALYSIS 500MG IV PRN ×2 (13:00)
--- NOTE | 2022-07-11 15:46 | NUR ---
WASHER AND CRUSHER TENDER NOTES PT DISCHARGED TO [facility] IN STABLE CONDITION. A/O X2. ABLE TO COMMUNICATE VERBALLY AND FOLLOWS. V/S TAKEN, STABLE AND RECORDED. PHOTOS OF SKIN ISSUES TAKEN AND FILED ON HIS CHART. ALL BELONGINGS ACCOUNTED FOR. MIDLINE G#18 ON ARIADNE KEPT IN PLACED, PT WILL CONTINUE TO RECEIVED IV CEFEPIME 1 G, BID X5 DAYS MORE. LCW PERMA CATH IN PLACE WITH DRESSING C/D/I. CALLED AND REPORT GIVEN TO BRENNAN (RNS) OF [facility] AND VERBALIZED UNDERSTANDING. PT'S SISTER ALYSON AWARE OF PT'S DC BACK TO SNF PER CM. TELE-BOX REMOVED AND GAVE TO ALLEY WORKER MIKE. REPORT AND EXIT FOLDER HANDED TO EMT'S. PT LEFT UNIT @ 1540 VIA NINO ACCOMPANIED BY 2 EMT'S FROM [facility]. AND CHARGE NURSE AWARE OF DISCHARGE.
== END 2022-07-11 18:12 | DRG 177 ==
LOC: ER 09:44 → TELE 17:17
PROVIDERS: ADMIT Internal Medicine; ATTEND Internal Medicine
PROC: 05HB33Z Insertion of Infusion Device into Right Basilic Vein, Percutaneous Approach (ICD-10-PCS; 2022-07-08)
PROC: 5A1D70Z Performance of Urinary Filtration, Intermittent, Less than 6 Hours Per Day (ICD-10-PCS; principal; 2022-07-10)
DX: J15.6 Pneumonia due to other Gram-negative bacteria (principal); E43 Unspecified severe protein-calorie malnutrition; N18.6 End stage renal disease; R53.2 Functional quadriplegia; E87.1 Hypo-osmolality and hyponatremia; I12.0 Hypertensive chronic kidney disease with stage 5 chronic kidney disease or end stage renal disease; I69.354 Hemiplegia and hemiparesis following cerebral infarction affecting left non-dominant side; J98.11 Atelectasis; J90 Pleural effusion, not elsewhere classified; N39.0 Urinary tract infection, site not specified; Z20.822 Contact with and (suspected) exposure to COVID-19; E21.3 Hyperparathyroidism, unspecified; Z88.0 Allergy status to penicillin; Z79.899 Other long term (current) drug therapy; Z79.01 Long term (current) use of anticoagulants; Z99.2 Dependence on renal dialysis; E87.6 Hypokalemia; E16.2 Hypoglycemia, unspecified; E88.09 Other disorders of plasma-protein metabolism, not elsewhere classified; D63.8 Anemia in other chronic diseases classified elsewhere; E78.5 Hyperlipidemia, unspecified; M89.8X9 Other specified disorders of bone, unspecified site; I95.3 Hypotension of hemodialysis; Z87.440 Personal history of urinary (tract) infections
CPT/HCPCS: 36415; 70450-TC; 71045-TC; 76770-TC; 80048-TC; 80053-TC; 80076-TC; 81001; 82570-TC; 82962-TC; 83605-TC; 83735-TC; 83880; 84100-TC; 84300-TC; 84443-TC; 84484-TC; 85025-TC; 87040-TC; 87081-TC; 87086-TC; 90935-TC; 94799-TC; A4349; A6403; C9803; G0378; J0692; J3370; J7030; J7040; J7050; J7060